=== PATIENT | male | born 1975 | race African-American/Black ===

== ENCOUNTER 2023-07-14 11:03 | Emergency (ER) | payer OTHER ==
[~2023-07-14] VITALS: Ht 170.2 cm; Wt 86.0 kg
[2023-07-14 11:05] VITALS: PULSE 98; RESP 18; TEMP 98.5
[2023-07-14 11:07] VITALS: BP 188/132; O2SAT 100
== END 2023-07-14 13:27 | disposition left against medical advice (07) ==
LOC: ER 11:03
DX: Z53.21 Procedure and treatment not carried out due to patient leaving prior to being seen by health care provider (principal)